=== PATIENT | male | born 2000 | race Caucasian/White ===

== ENCOUNTER 2025-09-28 16:33 | Emergency (ER) | payer OTHER ==
[~2025-09-28] VITALS: Ht 180.3 cm; Wt 72.6 kg
[2025-09-28 16:58] VITALS: BP 123/69; TEMP 98.2
[2025-09-28] MEDS ORDERED: ONDA4TAB5 PO (17:11)
[2025-09-28] MEDS ORDERED: ACET325C7 PO (17:11)
[2025-09-28] MEDS ORDERED: METH-649 PO (17:11)
[2025-09-28] MEDS ORDERED: IBUP-1490 PO (17:11)
[2025-09-28] MEDS ORDERED: LIDO30AD10 TP (17:11)
[2025-09-28 17:16] VITALS: O2SAT 99
== END 2025-09-28 17:17 | disposition home or self-care (01) ==
LOC: ER 16:35
DX: R51.9 Headache, unspecified (principal); R11.0 Nausea; M54.2 Cervicalgia; V89.2XXA Person injured in unspecified motor-vehicle accident, traffic, initial encounter; Y93.89 Activity, other specified; Y92.410 Unspecified street and highway as the place of occurrence of the external cause; Y99.8 Other external cause status